=== PATIENT | female | born 1985 | race Two or more races ===

== ENCOUNTER 2018-04-26 21:02 | Outpatient (CLI) | payer SELFPAY ==
[2018-04-26 21:45] LABS: APPEARANCE CLEAR (CLEAR); BILIRUBIN NEGATIVE (NEGATIVE); COLOR YELLOW (YELLOW); GLUCOSE NEGATIVE (NEGATIVE); KETONE NEGATIVE (NEGATIVE); NITRITE NEGATIVE (NEGATIVE); PROTEIN NEGATIVE (NEGATIVE); UROBILINOGEN NORMAL (NORMAL)
== END 2018-04-26 22:25 | disposition home or self-care (01) ==
LOC: D.LDO 21:02
PROVIDERS: Obstetrics & Gynecology
DX: O26.892 Other specified pregnancy related conditions, second trimester (principal); Z3A.27 27 weeks gestation of pregnancy